=== PATIENT | female | born 1955 ===

== ENCOUNTER → 2018-08-07 | Outpatient (REF) | payer OTHER | LOC: M LAB LCGH 13:42 | PROVIDERS: ATTEND Specialist | DX: M17.11 Unilateral primary osteoarthritis, right knee (principal) ==

== ENCOUNTER → 2019-04-06 | Outpatient (REF) | payer OTHER | LOC: M LAB LCGH 18:06 | PROVIDERS: ATTEND Specialist | DX: D17.20 Benign lipomatous neoplasm of skin and subcutaneous tissue of unspecified limb (principal) ==